=== PATIENT | male | born 2000 | race Caucasian/White ===

== ENCOUNTER 2021-04-04 12:48 | Emergency (ER) | payer BC, SELFPAY ==
[2021-04-04 12:51] VITALS: BP 146/64; PULSE 77; RESP 19; TEMP 36.6; O2SAT 100; BMI 27.6
--- NOTE | 2021-04-04 13:26 | ED_ITS ---
HPI - Wound/Laceration General Chief Complaint: Wound/Laceration Stated Complaint: cyst on tail bone Time Seen by Provider: 04/04/21 13:04 Source: patient Mode of arrival: ambulatory Limitations: no limitations History of Present Illness HPI narrative: 20-year-old male presents for 3 days of a painful lump on the top of his right buttock. Patient states he has boils in the past, but never had to have them drained. No fevers, or vomiting. Onset (ago): day(s) (3) Location: other (right buttock) Body four view annotation: 1. abscess Place: home Patient tetanus UTD: Yes Associated symptoms: pain Related Data Allergies Allergy/AdvReac Type Severity Reaction Status Date / Time No Known Allergies Allergy Verified 04/04/21 13:33 Review of Systems Review of Systems: Constitutional : No Weight loss, No Fever, No Chills, No Night Sweats,No Fatigue, No Malaise ENT/Mouth : No Hearing loss, No Ear Pain, No Nasal Congestion, NoSinus Pain, No Hoarseness, No sore throat, No Rhinorrhea, NoSwallowing Difficulty Eyes: No Eye Pain, No Swelling, No Redness, No Foreign Body, NoDischarge, No Vision Changes Cardiovascular : No Chest Pain, No SOB, No Dyspnea on Exertion, NoOrthopnea, No Edema, No Palpitations Respiratory : No Cough, No Sputum, No Wheezing, No Smoke Exposure, No Dyspnea Gastrointestinal : No Nausea, No Vomiting, No Diarrhea, NoConstipation, No abdominal Pain, No Hematochezia, No Melena Musculoskeletal : No joint pain, No Myalgias, No Joint Swelling Skin :abscess, red painful at top of buttocks Neuro : No Weakness, No Numbness, No Paresthesias, No Loss ofConsciousness, No Dizziness, No Headache PMFSH Social History Social History Advance Directives: No Advance Directives Information Provided: No Physical Exam Vital Signs: Vital Signs: Last Vital Signs Temp 98 F 04/04/21 12:51 Pulse 77 04/04/21 12:51 Resp 19 04/04/21 12:51 BP 146/64 H 04/04/21 12:51 Pulse Ox 100 04/04/21 12:51 Body Mass Index 27.6 Const: General: cooperative, no acute distress, well developed, alert and awake Nutritional Appearance: well nourished Orientation/consciousness: patient oriented x3 Limitations: no limitations Eyes: Conjunctivae: conjunctivae normal Pupils: Equal, round and reactive pupils present EOM: EOMs intact bilaterally Neck: Neck: Yes full ROM, Yes no lymphadenopathy and Yes supple Resp: Effort & Inspection: normal respiratory effort and able to speak in com plete sentences Auscultation: clear to auscultation bilaterally, no crackles, no rales, no rhonchi and no wheezes Cardio: Rate: regular rate Rhythm: regular rhythm Heart sounds: S1 normal heart sound present and S2 normal heart sound present GI: Inspection: Yes normal to inspection Palpation (GI): Soft to palpation, nontender, no guarding and not rigid Percussion: Yes normal to percussion Auscultation: normal bowel sounds Skin: Other: Abscess noted right gluteal cleft, is indurated with draining purulence Neuro: General: patient oriented x3, tone normal and moves all extremities Cranial nerves: Yes Equal, round and reactive pupils present Extrem: General: Yes normal to inspection and Yes full ROM Psych: Appearance: grossly normal Affect: normal affect Attitude: cooperative Thought process: Normal thought process present Course Course Course Narrative: 20-year-old with stable vitals was afebrile presents with 3 days of right gluteal cleft cyst. It has been painful. On exam, area is 2 cm in diameter just to the right of sacrum. There is induration, and when I press on the abscess, small amount of purulence is expressed. Did incision and drainage, about 5 mL purulence white giordano substance expressed. Packed wound, consultation to return to ER for recheck in 2 days. Patient verbalized agreement and understanding Procedures Abscess I/D Site: other (gluteal cleft) Side (if applicable): right Sedation/analgesia: none Local Anesthetic: lidocaine 1% Amount of anesthesia used (mL): 4 Technique: incised with blade Amount of fluid expressed (mL): 5 Sent for culture/gram staining?: No Irrigation: No Packing used?: iodoform Discharge Plan Discharge Clinical Impression: Pilonidal abscess of jeevan cleft Patient Disposition: Home, Self-Care Instructions: Pilonidal Cyst (ED) Additional Instructions: Please return to be seen in 2 days. You need to your abscess checked and the pa cking removed. Please leave the dressing in place until that time. If you have fevers, worsening pain, if you cannot eat or drink due to nausea and vomiting, please return sooner. Interventions: ED Discharge Assessment Last Done: 04/04/21 14:09 Discharge Date/Time: 04/04/21 14:10
[2021-04-04] MEDS: Lidocaine HCl 1 % 20 ML VIAL 10 ML INFILTRATI (13:50)
== END 2021-04-04 14:10 | disposition home or self-care (01) ==
PROVIDERS: Emergency Provider Emergency Medicine; PCP Internal Medicine
DX: L02.31 Cutaneous abscess of buttock (principal)
CPT/HCPCS: 10060; 99283; 99284

== ENCOUNTER 2021-04-06 09:25 | Emergency (ER) | payer BC, SELFPAY ==
[2021-04-06 10:14] VITALS: BP 144/65; PULSE 67; RESP 19; TEMP 36.5; O2SAT 98; BMI 27.6
--- NOTE | 2021-04-06 11:12 | ED_ITS ---
HPI - Skin/Abscess/Foreign Bdy General Chief complaint: Skin/Abscess/Foreign Body Stated complaint: WOUND CHECK Time Seen by Provider: 04/06/21 10:14 Source: patient Mode of arrival: ambulatory History of Present Illness HPI narrative: 20-year-old male presenting to the ED for abscess check/packing removal from pilonidal cyst to right buttock from 04/04. Patient reports area overall improved, reports slight continue drainage. Denies fever, chills, abdominal pain, nausea/vomiting MD complaint: abscess/boil Related Data Previous Rx's Medication Instructions Recorded cephalexin 500 mg capsule 500 mg PO QID 7 Days #28 cap 04/06/21 doxycycline hyclate 100 mg tablet 100 mg PO BID 7 Days #14 tab 04/06/21 Allergies Allergy/AdvReac Type Severity Reaction Status Date / Time No Known Allergies Allergy Verified 04/04/21 13:33 Review of Systems Review of Systems: Constitutional: No Fever, No Chills ENT/Mouth: No Ear Pain, No sore throat, No Rhinorrhea Cardiovascular: No Chest Pain, No SOB Respiratory: No Cough Gastrointestinal: No Nausea, No Vomiting, No Diarrhea, No Constipation, No Abdominal pain Genitourinary:, No Dysuria, No Flank Pain Musculoskeletal: No joint pain, No Myalgias, No Joint Swelling Skin: + Skin Lesions, No rash Neuro: No Weakness, No Numbness, No Paresthesias Yes all other systems are reviewed and are negative [facility] Past Medical History Attestation statement: The following information was validated with the patient. Medical History (Updated 04/06/21 @ 11:43 by CAITLIN Zamudio) No known health problems Social History Social History Advance Directives: Yes Advance Directives Information Provided: No Advance Directives on File: No Physical Exam Vital Signs: Vital Signs: Last Vital Signs Temp 97.7 F 04/06/21 10:14 Pulse 67 04/06/21 10:14 Resp 19 04/06/21 10:14 BP 144/65 H 04/06/21 10:14 Pulse Ox 98 04/06/21 10:14 Body Mass Index 27.6 Const: General: cooperative and healthy appearing Orientation/consciousness: patient oriented x3 Limitations: no limitations HENMT: Head: Yes normal to inspection Ears: hearing grossly normal bilaterally General nose exam: Normal external nose present Face and sinus: Yes normal facial exam Eyes: General: appearance normal, both eyes and all related structures EOM: EOMs intact bilaterally Neck: Neck: Yes normal visual inspection Resp: Effort & Inspection: normal respiratory effort Auscultation: clear to auscultation bilaterally Cardio: Rate: regular rate Heart sounds: S1 normal heart sound present and S2 normal heart sound present GI: Inspection: Yes normal to inspection Palpation (GI): Soft to palpation, nontender, no guarding and not rigid : Other: Packing removed from right pilonidal abscess. No expressible drainage. No surrounding cellulitis. Small area of induration noted to right buttock. No overlying cellulitis/fluctuance. Skin: Rashes: no rashes Wounds: no wounds Neuro: General: patient oriented x3 Gait exam (Neuro): Normal gait present Extrem: General: Yes normal to inspection MDM - Skin/Abscess/Foreign Bdy MDM Narrative Medical decision making narrative: 20-year-old male presenting to the ED for abscess check/packing removal from pilonidal cyst to right buttock from 04/04. On exam VSS, NAD/nontoxic appearing, packing removed, no evidence of active infection/cellulitis, small appreciable area of induration noted, will prescribe patient antibiotics, discussed worrisome signs and symptoms/strict return prec autions Medical Records Attestation: I reviewed the patient's medical records. Discharge Plan Discharge Clinical Impression: Abscess packing removal Patient Disposition: Home, Self-Care Instructions: Abscess Follow-up (ED) Additional Instructions: Doxycycline and Keflex are antibiotics, please take as prescribed Keep a close eye on area, if it is growing, there continues to be drainage, you have fever, increasing pain please return to the ED Please follow-up with your doctor Prescriptions: New cephalexin 500 mg capsule 500 mg PO QID 7 Days Qty: 28 RF: 0 doxycycline hyclate 100 mg tablet 100 mg PO BID 7 Days Qty: 14 RF: 0 Referrals: Sy Clark MD [Primary Care Provider] - 3 days
== END 2021-04-06 12:03 | disposition home or self-care (01) ==
PROVIDERS: Emergency Provider Emergency Medicine; PCP Internal Medicine
DX: Z48.00 Encounter for change or removal of nonsurgical wound dressing (principal); Z79.899 Other long term (current) drug therapy
CPT/HCPCS: 99283

== ENCOUNTER 2021-10-25 07:17 | Emergency (ER) | payer BC, SELFPAY ==
--- NOTE | ~2021-10-25 | XR_ITS ---
EXAMINATION: XR ABDOMEN KUB CLINICAL INDICATION: No bowel movement in 3 days, rule out obstruction. COMPARISON: None TECHNIQUE: AP view of the abdomen. FINDINGS: There is a nonobstructive bowel gas pattern. Moderate stool seen within the colon distally to the rectum. The osseous structures are unremarkable. XR/XR KUB IMPRESSION: Nonobstructive bowel gas pattern. Moderate colonic stool burden.
[2021-10-25 07:25] VITALS: BP 123/66; PULSE 87; RESP 16; TEMP 36.8; O2SAT 100; BMI 26.6
--- NOTE | 2021-10-25 09:29 | ED_ITS ---
HPI - General Adult General Chief complaint: Wound/Laceration Stated complaint: cyst Time Seen by Provider: 10/25/21 08:06 Source: patient Mode of arrival: ambulatory History of Present Illness HPI narrative: 21-year-old male with a past medical history of pilonidal cyst, recently evaluated by General surgery at [facility] on Thursday prescribed Keflex on 10/22/21, presenting to the ED complaining of persistent right buttock pain x1 we ek. Reports associated constipation, no BM x3 days, is passing flatus. Denies drainage from area, pointing, erythema. Reports discomfort with sitting, denies discomfort with BMs/urinating, bloody BMs, hematuria, nausea, vomiting, abdominal pain Onset (ago): week(s) Related Data Previous Rx's Medication Instructions Recorded cephalexin 500 mg capsule 500 mg PO QID 7 Days #28 cap 04/06/21 doxycycline hyclate 100 mg tablet 100 mg PO BID 7 Days #14 tab 04/06/21 doxycycline hyclate 100 mg tablet 100 mg PO BID 10 Days #20 tab 10/25/21 lidocaine 5 % topical ointment 1 appl TOPICAL BID PRN #35.44 g 10/25/21 polyethylene glycol 3350 17 17 g PO DAILY #119 g 10/25/21 gram/dose oral powder (Miralax) Allergies Allergy/AdvReac Type Severity Reaction Status Date / Time No Known Allergies Allergy Verified 04/04/21 13:33 Review of Systems Review of Systems: Constitutional: No Fever, No Chills, No Fatigue, No Malaise ENT/Mouth: No Ear Pain, No Nasal Congestion, No sore throat, No Rhinorrhea, No Swallowing Difficulty Eyes: No Eye Pain, No Swelling, No Redness Cardiovascular: No Chest Pain, No SOB, No Edema, No Palpitations Respiratory: No Cough, No Sputum, No Dyspnea Gastrointestinal: No Nausea, No Vomiting, No Diarrhea, + Constipation, No Abdominal pain Genitourinary: No Dysuria, No Urinary Frequency, No Hematuria, No Urgency, No Flank Pain, No Urinary Flow Changes, No Hesitancy Musculoskeletal: No joint pain, No Myalgias, No Joint Swelling Skin: + Skin Lesions, No rash Neuro: No Weakness, No Headache Yes all other systems are reviewed and are negative PMFSH Past Medical History Attestation statement: The following information was validated with the patient. Medical History No known health problems Social History Social History Advance Directives: No Advance Directives Information Provided: Yes Physical Exam ED Vital Signs: Vital Signs - 24 hr 10/25/21 07:25 Temperature 98.3 F Pulse Rate 87 Respiratory Rate 16 Blood Pressure 123/66 Pulse Oximetry 100 BMI result Body Mass Index 26.6 Const General: cooperative, healthy appearing and no acute distress Orientation/consciousness: patient oriented x3 Limitations: no limitations HENMT Head: Yes normal to inspection Ears: hearing grossly normal bilaterally General nose exam: Normal external nose present Face and sinus: Yes normal facial exam Eyes General: appearance normal, both eyes and all related structures EOM: EOMs intact bilaterally Neck Neck: Yes normal visual inspection and Yes no meningeal signs Resp Effort & Inspection: normal respiratory effort and no respiratory distress Cardio Rate: regular rate Heart sounds: S1 normal heart sound present and S2 normal heart sound present GI Other: + indurated pilonidal cyst extending to right buttock with swelling and tenderness to palpation. No fluctuance/erythema or pointing. No appreciable rectal involvement Inspection: Yes normal to inspection Palpation (GI): Soft to palpation, nontender, no guarding and not rigid Rectal Exam - Male: Yes normal sphincter tone, No External hemorrhoid(s) present, No Internal hemorrhoid(s) present and Yes tenderness General: Yes no CVA tenderness Back/Spine/Pelvis Back: no CVA tenderness Skin Rashes: no rashes Wounds: no wounds Neuro General: patient oriented x3 and no meningeal signs Gait exam (Neuro): Normal gait present Extrem General: Yes normal to inspection Course Course Course Narrative: -KUB showing nonobstructive bowel gas pattern with moderate colonic stool burden Results discussed with patient and mother including worrisome signs and symptoms and need to close follow-up with General surgery. They verbalized understanding -1000--as patient lying is getting ready for discharge reports he needs suture removal as well to left index finger, 5 sutures were placed last Thursday, 9 d ays ago, at [facility] s/p injury at work. Denies erythema, drainage, pain. > removed 1 suture however her wound began to open, left remaining 4 sutures intact and applied Steri-Strips. Instructed patient to leave sutures in place for another 3-5 days Procedures Procedure Narrative Procedure Narrative: Suture removal Removed 1 suture from left index finger Applied Steri-Strip Medical Decision Making MDM Narrative Medical decision making narrative: 21-year-old male with a past medical history of pilonidal cyst, recently evaluated by General surgery at [facility] on Thursday prescribed Keflex on 10/22/21, presenting to the ED complaining of persistent right buttock pain x1 week. Reports associated constipation, no BM x3 days, is passing flatus. On exam vital signs stable, NAD/nontoxic, physical exam as above consistent with indurated pilonidal cyst extending to right buttock, abdomen soft/nontender. No perirectal involvement appreciated. Abscess not drainable at this time. Patient currently on Keflex, will add doxycycline, discussed strict return precautions and worrisome signs and symptoms. Concern for constipation, unlikely SBO Will obtain KUB Medical Records Medical records reviewed: Yes I reviewed the patient's medical records. Lab Data Lab results reviewed: Yes I reviewed the patient's lab results. Discharge Plan Discharge Clinical Impression: Pilonidal cyst with abscess, Constipation Patient Disposition: Home, Self-Care Instructions: Constipation (ED), Pilonidal Cyst (ED), Abscess Follow-up (ED) Additional Instructions: Continue taking previously prescribed Keflex, in addition start taking doxycycline which is another antibiotic You should also take Miralax to help with your stool Please follow-up for the remainder of your sutures to be removed in 3-5 days your X-ray shows constipation if your symptoms worsen, area grows, becomes red, pointing, has drainage, you develop fever please return to the emergency department Please follow-up with her general surgeon Prescriptions: New doxycycline hyclate 100 mg tablet 100 mg PO BID 10 Days Qty: 20 0RF polyethylene glycol 3350 [Miralax] 17 gram/dose powder 17 g PO DAILY Qty: 119 0RF lidocaine 5 % ointment 1 appl topical BID PRN (Reason: pain) Qty: 35.44 0RF No Action cephalexin 500 mg capsule 500 mg PO QID 7 Days Qty: 28 0RF doxycycline hyclate 100 mg tablet 100 mg PO BID 7 Days Qty: 14 0RF Referrals: Paolo Ortiz MD [Physician] - 3 days Stand Alone Forms: Work/School Release
== END 2021-10-25 10:02 | disposition home or self-care (01) ==
PROVIDERS: Emergency Provider Emergency Medicine; PCP Internal Medicine
DX: L05.01 Pilonidal cyst with abscess (principal); K59.00 Constipation, unspecified; R10.9 Unspecified abdominal pain; Z79.899 Other long term (current) drug therapy; Z48.02 Encounter for removal of sutures
CPT/HCPCS: 10120; 74018; 99283

== ENCOUNTER 2022-03-13 11:47 | Emergency (ER) | payer BC, SELFPAY ==
[2022-03-13 11:49] VITALS: BP 123/71; PULSE 56; RESP 18; TEMP 36.8; O2SAT 100; BMI 26.6
[2022-03-13 12:12] LABS: Strep A Nucleic Acid Negative (Negative)
[2022-03-13 12:17] LABS: COVID-19 Test Negative (Negative)
--- NOTE | 2022-03-13 13:26 | ED_ITS ---
HPI - General Adult General Chief complaint: General Medical Stated complaint: Sore throat Time Seen by Provider: 03/13/22 13:26 Source: patient Mode of arrival: ambulatory Limitations: no limitations History of Present Illness HPI narrative: 21-year-old male with no significant medical history presents to the ER for evaluation of sore throat for the last 1 month. He states he has been tested for strep and COVID and both have been negative. He reports the pain is constant, worse when he tries to eat. It is also worse 1st thing in the morning and before he goes to bed. He denies any other symptoms including fever, chills, cough, runny nose, watery eyes. He has been able to eat and drink normally despite the pain in his throat. MD complaint: Sore throat Onset (ago): month(s) (1) Location: mouth Radiation: non-radiation Severity: moderate Severity scale (1-10): 6 Quality: aching Pain Consistency: constant Relieving factors: none Exacerbating factors: eating Associated symptoms: denies other symptoms Treatments prior to arrival: none Related Data Previous Rx's Medication Instructions Recorded cephalexin 500 mg capsule 500 mg PO QID 7 days #28 caps 04/06/21 doxycycline hyclate 100 mg tablet 100 mg PO BID 7 days #14 tabs 04/06/21 doxycycline hyclate 100 mg tablet 100 mg PO BID 10 days #20 tabs 10/25/21 lidocaine 5 % topical ointment 1 appl topical BID PRN pain #35.44 10/25/21 grams polyethylene glycol 3350 17 17 g PO DAILY #119 grams 10/25/21 gram/dose oral powder (Miralax) amoxicillin 875 mg-potassium 1 tab PO BID #20 tabs 03/13/22 clavulanate 125 mg tablet cetirizine 10 mg tablet (All Day 10 mg PO DAILY #30 tabs 03/13/22 Allergy (cetirizine)) fluticasone propionate 50 1 spray intranasal BID #16 grams 03/13/22 mcg/actuation nasal spray,suspension (Flonase Allergy Relief) Allergies Allergy/AdvReac Type Severity Reaction Status Date / Time No Known Allergies Allergy Verified 04/04/21 13:33 Review of Systems Review of Systems: Constitutional: No Fever, No Chills ENT/Mouth: + sore throat, No Rhinorrhea, No Swallowing Difficulty Eyes: No Eye Pain, No Swelling, No Redness Cardiovascular: No Chest Pain, No SOB, No Orthopnea, No Edema Respiratory: No Cough, No Sputum, No Wheezing, No dyspnea Gastrointestinal: No Nausea, No Vomiting, No Diarrhea, No abdominal Pain Genitourinary: No Dysuria, No Urinary Frequency, No Hematuria, No penile lesions Musculoskeletal: No joint pain, No Myalgias Skin: No Skin Lesions, No rash Neuro: No Weakness, No Numbness, No Dizziness, No Headache Heme/Lymph: No Lymphadenopathy PMFSH Past Medical History Medical History No known health problems Social History Social History Advance Directives: No Advance Directives Information Provided: No Physical Exam ED Vital Signs: Vital Signs - 24 hr 03/13/22 11:49 Temperature 98.2 F Pulse Rate 56 Respiratory Rate 18 Blood Pressure 123/71 Pulse Oximetry 100 Oxygen Delivery Method Room Air BMI result Body Mass Index 26.6 Appearance: Alert. Oriented X3. No acute distress. HEENT: normal external inspection. pharynx with moist mucus membranes, tonsils are bilaterally enlarged, erythematous, tiny exudates noted posteriorly and bilaterally. Uvula is midline. Normal voice, handling secretions normally. CVS: Normal heart rate and rhythm. Pulses normal. Respiratory: No respiratory distress. Skin: Skin warm and dry. Normal skin color. Normal skin turgor. No rashes. Extremities: normal inspection x4. Neuro: Oriented X 3. No motor deficit. No sensory deficit. Course Course Course Narrative: 21-year-old male presents to the ER for evaluation of a sore throat for the last 1 month. He has been negative for COVID and strep. He is negative for COVID and strep today. On examination his tonsils are enlarged, erythematous with tiny exudates posteriorly. This could be indicative of strep throat. Upon further questioning patient reports he had sexual contact with a person recently that had herpes. He has no penile or lesions on his lips or inside of his mouth. The tonsils do not appear to be herpetic. Will test for gonorrhea however. Will empirically start him on Augmentin as well as Zyrtec and Flonase for possible allergies and other bacterial infection. If his gonorrhea swab is positive we will call and start him on treatment. Stable for discharge home. Medical Decision Making Lab Data Labs: Lab Results 03/13/22 03/13/22 Range/Units 11:58 11:58 COVID-19 (THONY) Negative (Negative) COVID-19 Clin Com See Note S. pyogenes GrpA GABY Negative (Negative) Discharge Plan Discharge Clinical Impression: Sore throat Patient Disposition: Home, Self-Care Instructions: Pharyngitis (ED) Additional Instructions: You are negative for strep throat and COVID-19. Take the prescribed antibiotic as directed, complete the entire course. If your Gonorrhea throat swab is positive we will call you. Recommend trial of the prescribed medications, take as directed. Recommend following up with ear nose and throat doctor, name and number below. Use warm salt water gargles several times per day. Recommend [id number] Chloraseptic spray and Cepacol lozenges as needed for your sore throat. You can also take Motrin and Tylenol for pain. If you develop new or worsening symptoms call 911 or come back to the ER for further evaluation. Prescriptions: New cetirizine [All Day Allergy (cetirizine)] 10 mg tablet 10 mg PO DAILY Qty: 30 0RF fluticasone propionate [Flonase Allergy Relief] 50 mcg/actuation s pray,suspension 1 spray intranasal BID Qty: 16 0RF Rx Instructions: administer into each nostril amoxicillin-pot clavulanate 875-125 mg tablet 1 tab PO BID Qty: 20 0RF No Action cephalexin 500 mg capsule 500 mg PO QID 7 Days Qty: 28 0RF doxycycline hyclate 100 mg tablet 100 mg PO BID 7 Days Qty: 14 0RF doxycycline hyclate 100 mg tablet 100 mg PO BID 10 Days Qty: 20 0RF polyethylene glycol 3350 [Miralax] 17 gram/dose powder 17 g PO DAILY Qty: 119 0RF lidocaine 5 % ointment 1 appl topical BID PRN (Reason: pain) Qty: 35.44 0RF Referrals: Jarret Gomez [Physician] - Stand Alone Forms: Work/School Release Interventions: ED Discharge Assessment Last Done: 03/13/22 13:52 Discharge Date/Time: 03/13/22 13:54
[2022-03-15 06:47] LABS: N. gonorrhoeae RNA TMA, Throat NOT DETECTED (NOT DETECTED)
== END 2022-03-13 13:54 | disposition home or self-care (01) ==
PROVIDERS: Physician Assistant; Emergency Provider Emergency Medicine Emergency Medical Services; PCP Internal Medicine
DX: J02.9 Acute pharyngitis, unspecified (principal); Z20.822 Contact with and (suspected) exposure to COVID-19
CPT/HCPCS: 36415; 87591; 87635; 87651; 99282; 99283

== ENCOUNTER 2022-11-23 09:30 | Emergency (ER) | payer BC, SELFPAY ==
[2022-11-23 09:33] VITALS: BP 127/52; PULSE 67; RESP 14; TEMP 36.6; O2SAT 98; BMI 27.4
--- NOTE | 2022-11-23 09:37 | ED_ITS ---
HPI - General Adult General Chief complaint: General Medical Stated complaint: sore throat Time Seen by Provider: 11/23/22 09:37 Source: patient Mode of arrival: ambulatory Limitations: no limitations History of Present Illness HPI narrative: 22-year-old male presents with fatigue, malaise, subjective fevers and chills and sore throat for the past week not improving.? Reports sore throat is worse with swallowing.? Significant other with similar symptoms..? Denies chest pain, shortness of breath, nausea, vomiting, abdominal pain, headache, vision changes, dizziness and weakness. Related Data Previous Rx's Medication Instructions Recorded cephalexin 500 mg capsule 500 mg PO QID 7 days #28 caps 04/06/21 doxycycline hyclate 100 mg tablet 100 mg PO BID 7 days #14 tabs 04/06/21 doxycycline hyclate 100 mg tablet 100 mg PO BID 10 days #20 tabs 10/25/21 lidocaine 5 % topical ointment 1 appl topical BID PRN pain #35.44 10/25/21 grams polyethylene glycol 3350 17 17 g PO DAILY #119 grams 10/25/21 gram/dose oral powder (Miralax) amoxicillin 875 mg-potassium 1 tab PO BID #20 tabs 03/13/22 clavulanate 125 mg tablet cetirizine 10 mg tablet (All Day 10 mg PO DAILY #30 tabs 03/13/22 Allergy (cetirizine)) fluticasone propionate 50 1 spray intranasal BID #16 grams 03/13/22 mcg/actuation nasal spray,suspension (Flonase Allergy Relief) amoxicillin 875 mg-potassium 1 tab PO BID 10 days #20 tabs 11/23/22 clavulanate 125 mg tablet Allergies Allergy/AdvReac Type Severity Reaction Status Date / Time No Known Allergies Allergy Verified 11/23/22 09:32 Review of Systems Review of Systems: Constitutional : No Weight loss, + Fever, + Chills, + Fatigue, + Malaise ENT/Mouth : + sore throat, No Rhinorrhea Eyes: No Eye Pain, No Swelling, No Redness Cardiovascular : No Chest Pain, No SOB, No Dyspnea on Exertion, No Orthopnea, No Edema, No Palpitations Respiratory : No Cough, No Sputum, No Wheezing Gastrointestinal : No Nausea, No Vomiting, No Diarrhea, No Constipation, No abdominal Pain, No Hematochezia, No Melena Genitourinary : No Dysuria, No Urinary Frequency, No Hematuria, Musculoskeletal : No joint pain, No Myalgias, No Joint Swelling Skin : No Skin Lesions, No rash Neuro : No Weakness, No Numbness, No Dizziness, No Headache Psych : No Anxiety/Panic, No Depression All other systems reviewed and are negative Yes all other systems are reviewed and are negative [facility] Past Medical History Attestation statement: The following information was validated with the patient. Source: old records reviewed and nursing notes reviewed Medical History No known health problems Physical Exam ED Vital Signs: Vital Signs - 24 hr 11/23/22 09:33 Temperature 98 F Pulse Rate 67 Respiratory Rate 14 Blood Pressure 127/52 L Pulse Oximetry 98 Oxygen Delivery Method Room Air BMI result Body Mass Index 27.4 vss Appearance: Alert.? Oriented X3.? No acute distress.? Head: Normocephalic, atraumatic, no step-offs or deformities Eyes: Pupils equal, round and reactive to light.? ENT: Pharynx w/ erythematous tonsils bilaterally, no exudates or edema.? Uvula midline.? Patient is speaking in full sentences controlling secretions well no palpable lymphadenopathy. Neck: Normal inspection.? Neck supple.? CVS: Normal heart rate and rhythm.? Pulses normal.? Respiratory: No respiratory distress.? Breath sounds normal.? Abdomen: Soft and nontender.? Skin: Skin warm and dry.? Normal skin color.? Normal skin turgor.? Extremities: No lower extremity edema.? No calf ttp. 5/5 strength to bilateral upper and lower extremities Neuro: Oriented X 3.? No motor deficit.? No sensory deficit. CN 2-12 intact Course Reevaluation(s) Reevaluation #1: Tells me that co-worker tested positive for strep throat. Will empirically treat. Educated patient on diagnosis and treatment plan, answered all question, patient verbalizes understanding. At this time patient will be discharged home, advised to return with new or worsening symptoms. Educated on worrisome signs and symptoms and when to return. At this time I feel comfortable discharge home. Time: 09:57 Medical Decision Making Medical Decision Making [facility] Narrative: [id number] 22-year-old male presents with sore throat, fatigue, malaise for the past week not improving. ??Physical exam significant for erythematous tonsils bilaterally, no exudates or edema.? Uvula midline.? Patient is speaking in full sentences controlling secretions well, no palpable lymphadenopathy. ?This is likely viral illness versus strep pharyngitis.? Unlikely epiglottitis, peritonsillar abscess, ? retropharyngeal abscess,no signs of airway compromise. ?Plan viral testing, will treat with antibiotics due ? For pharyngitis Differential Diagnosis Differential Diagnoses: The differential diagnosis associated with the presentation includes ?This is likely viral illness versus strep pharyngitis.? Unlikely epiglottitis, peritonsillar abscess, ? retropharyngeal abscess,no signs of airway compromise. Admission/Observation Consideration of admission/observation: Escalation of care including admission/observation considered Core Measures AMI core measures followed: Yes Measure exclusions: not indicated Discharge Plan Discharge Clinical Impression: Pharyngitis Patient Disposition: Home, Self-Care Instructions: Pharyngitis (ED) Additional Instructions: Take your medications as prescribed. If you were prescribed antibiotics today, it is important that you take your medication to their entirety, do not skip any doses, do not finish them early. Follow-up with your primary care provider this week. Return to the emergency department with new or worsening symptoms. Such as fevers, chills, chest pain, shortness of breath, nausea, vomiting, dizziness, headache, vision changes, lethargy In case of emergency call 911 Prescriptions: New amoxicillin-pot clavulanate 875-125 mg tablet 1 tab PO BID 10 Days Qty: 20 0RF No Action cephalexin 500 mg capsule 500 mg PO QID 7 Days Qty: 28 0RF doxycycline hyclate 100 mg tablet 100 mg PO BID 7 Days Qty: 14 0RF doxycycline hyclate 100 mg tablet 100 mg PO BID 10 Days Qty: 20 0RF polyethylene glycol 3350 [Miralax] 17 gram/dose powder 17 g PO DAILY Qty: 119 0RF lidocaine 5 % ointment 1 appl topical BID PRN (Reason: pain) Qty: 35.44 0RF cetirizine [All Day Allergy (cetirizine)] 10 mg tablet 10 mg PO DAILY Qty: 30 0RF fluticasone propionate [Flonase Allergy Relief] 50 mcg/actuation spray,suspension 1 spray intranasal BID Qty: 16 0RF Rx Instructions: administer into each nostril amoxicillin-pot clavulanate 875-125 mg tablet 1 tab PO BID Qty: 20 0RF Referrals: Sy Clark MD [Primary Care Provider] - 2 days Stand Alone Forms: Work/School Release
[2022-11-23 10:09] LABS: IDNOW Serial# 08D9AD1C; Strep A Nucleic Acid Negative (Negative)
== END 2022-11-23 10:30 | disposition home or self-care (01) ==
PROVIDERS: Emergency Provider Emergency Medicine; PCP Internal Medicine
DX: J02.9 Acute pharyngitis, unspecified (principal); Z20.822 Contact with and (suspected) exposure to COVID-19; Z20.828 Contact with and (suspected) exposure to other viral communicable diseases
CPT/HCPCS: 87651; 99283

== ENCOUNTER 2023-04-25 10:55 | Emergency (ER) | payer BC, SELFPAY ==
[2023-04-25 10:58] VITALS: BP 138/93; PULSE 91; RESP 19; TEMP 36.6; O2SAT 99; BMI 27.3
--- NOTE | 2023-04-25 11:52 | ED.WOUNDLAC ---
HPI - Wound/Laceration General Chief Complaint: Wound/Laceration Stated Complaint: cut on armpit, infected? Time Seen by Provider: 04/25/23 11:32 Source: patient Mode of arrival: ambulatory Limitations: no limitations History of Present Illness HPI narrative: this is a 22-year-old male who has previously healthy who presents to the ER with concern for abrasion to the right axilla which she has noticed for several days. Patient reports he gets similar abrasions underneath his chin in his groin area from time to time. Usually resolve without any intervention. Related Data Previous Rx's Medication Instructions Recorded cephalexin 500 mg capsule 500 mg PO QID 7 days #28 caps 04/06/21 doxycycline hyclate 100 mg tablet 100 mg PO BID 7 days #14 tabs 04/06/21 doxycycline hyclate 100 mg tablet 100 mg PO BID 10 days #20 tabs 10/25/21 lidocaine 5 % topical ointment 1 appl topical BID PRN pain #35.44 10/25/21 grams polyethylene glycol 3350 17 17 g PO DAILY #119 grams 10/25/21 gram/dose oral powder (Miralax) amoxicillin 875 mg-potassium 1 tab PO BID #20 tabs 03/13/22 clavulanate 125 mg tablet cetirizine 10 mg tablet (All Day 10 mg PO DAILY #30 tabs 03/13/22 Allergy (cetirizine)) fluticasone propionate 50 1 spray intranasal BID #16 grams 03/13/22 mcg/actuation nasal spray,suspension (Flonase Allergy Relief) amoxicillin 875 mg-potassium 1 tab PO BID 10 days #20 tabs 11/23/22 clavulanate 125 mg tablet Allergies Allergy/AdvReac Type Severity Reaction Status Date / Time No Known Allergies Allergy Verified 04/25/23 10:57 Review of Systems Review of Systems: Yes all other systems are reviewed and are negative Constitutional: Constitutional: Reports no additional constitutional complaints, Denies body ache(s), Denies chills, Denies fever(s), Denies headache(s) and Denies weakness Eyes: Eyes: Reports no additional eye complaints and Denies change in vision ENT: Reports system reviewed and no additional complaints, except as documented, Denies dizziness, Denies headache(s), Denies nasal congestion, Denies nasal discharge and Denies neck pain Cardiovascular: Cardiovascular: Reports no additional cardiovascular complaints, Denies chest pain, Denies leg edema and Denies dyspnea Respiratory: Respiratory: Reports no additional respiratory complaints, Denies cough and Denies dyspnea Gastrointestinal: Gastrointestinal: Reports no additional gastrointestinal complaints, Denies abdominal pain, Denies diarrhea, Denies nausea and Denies vomiting Genitourinary: Genitourinary: Denies urinary incontinence Musculoskeletal: Musculoskeletal: Reports no additional musculoskeletal complaints, Denies back pain, Denies arthralgias, Denies joint swelling, Denies neck pain, Denies numbness and Denies tingling Integumentary/Breasts: Skin/Breast: Reports system reviewed and no additional complaints, except as docu, Denies swelling, Denies erythema, Denies rash and Reports wounds Neurologic: Reports system reviewed and no additional complaints, except as documented, Denies Abnormal speech present, Denies dizziness, Denies headache(s), Denies numbness, Denies tingling and Denies weakness PMFSH Past Medical History Attestation statement: The following information was validated with the patient. Source: old records reviewed and nursing notes reviewed Medical History No known health problems Social History Social History Advance Directives: No Advance Directives Information Provided: Yes Physical Exam Vital Signs: Vital Signs: Last Vital Signs Temp 98 F 04/25/23 10:58 Pulse 91 04/25/23 10:58 Resp 19 04/25/23 10:58 BP 138/93 H 04/25/23 10:58 Pulse Ox 99 04/25/23 10:58 O2 Del Method Room Air 04/25/23 10:58 BMI result Body Mass Index 27.3 Const: General: cooperative, healthy appearing, comfortable and no acute distress Orientation/consciousness: patient oriented x3 Limitations: no limitations HEENT: Head: Yes normal to inspection Ears: hearing grossly normal bilaterally General nose exam: Normal external nose present Face and sinus: Yes normal facial exam Mouth: Normal oral and palatal mucosa present Throat: Yes posterior oropharynx normal Eyes: General: appearance normal, both eyes and all related structures Pupils: Equal, round and reactive pupils present Neck: Neck: Yes normal visual inspection Chest: Chest palpation & inspection: normal inspection of the chest Chest/axillae images: 1. To the right axilla there is an approximately 3 cm healing lesion noted with no surrounding induration, fluctuance, pointing or draining. There is no tenderness on palpation. There is no local lymphadenopathy. Resp: Effort & Inspection: normal respiratory effort Auscultation: clear to auscultation bilaterally Cardio: Rate: regular rate Rhythm: regular rhythm Peripheral pulses: Peripheral pulses 2+ throughout GI: Inspection: Yes normal to inspection Palpation (GI): Soft to palpation and nontender Auscultation: normal bowel sounds Back/Spine/Pelvis: Thoracic/Lumbar Spine: thoracic and lumbar spine normal to inspection Skin: General skin exam: no rashes or lesions noted Neuro: General: patient oriented x3, no focal motor deficits and normal sensation to monofilament Cranial nerves: Yes Equal, round and reactive pupils present Cognition (Neuro): normal cognition Speech: No Abnormal speech present Gait exam (Neuro): Normal gait present Motor exam (neuro): 5/5 motor strength present throughout Extrem: General: Yes normal to inspection Medical Decision Making Medical Decision Making MDM Narrative: this is a 22-year-old male who has previously healthy who presents to the ER with concern for abrasion to the right axilla which she has noticed for several days. Patient reports he gets similar abrasions underneath his chin in his groin area from time to time. Usually resolve without any intervention. To the right axilla there is an approximately 3 cm healing lesion noted with no surrounding induration, fluctuance, pointing or draining. There is no tenderness on palpation. There is no local lymphadenopathy. Patient reports history of these lesions in areas of hair growth. Patient shows me several pictures on his phone that is consistent with folliculitis. I recommended that he apply topical antibiotic cream, use warm compresses as tolerated. We discussed that there is no need for incision and drainage. Differential Diagnosis Differential Diagnoses: The differential diagnosis associated with the presentation includes Folliculitis low concern for cellulitis or abscess Admission/Observation Consideration of admission/observation: Escalation of care including admission/observation considered Prescription Management I considered prescription management with: Antibiotic healing lesion. Does not require oral antibiotics Discharge Plan Discharge Clinical Impression: Folliculitis Patient Disposition: Home, Self-Care Instructions: Folliculitis (ED) Additional Instructions: Apply a topical antibiotic ointment You may also use warm compresses 3-4 times daily Prescriptions: No Action cephalexin 500 mg capsule 500 mg PO QID 7 Days Qty: 28 0RF doxycycline hyclate 100 mg tablet 100 mg PO BID 7 Days Qty: 14 0RF doxycycline hyclate 100 mg tablet 100 mg PO BID 10 Days Qty: 20 0RF polyethylene glycol 3350 [Miralax] 17 gram/dose powder 17 g PO DAILY Qty: 119 0RF lidocaine 5 % ointment 1 appl topical BID PRN (Reason: pain) Qty: 35.44 0RF cetirizine [All Day Allergy (cetirizine)] 10 mg tablet 10 mg PO DAILY Qty: 30 0RF fluticasone propionate [Flonase Allergy Relief] 50 mcg/actuation spray,suspension 1 spray intranasal BID Qty: 16 0RF Rx Instructions: administer into each nostril amoxicillin-pot clavulanate 875-125 mg tablet 1 tab PO BID Qty: 20 0RF amoxicillin-pot clavulanate 875-125 mg tablet 1 tab PO BID 10 Days Qty: 20 0RF Referrals: Sy Clark MD [Primary Care Provider] - 1 week (as needed) Interventions: ED Discharge Assessment Last Done: 04/25/23 12:06 Discharge Date/Time: 04/25/23 12:07
== END 2023-04-25 12:07 | disposition home or self-care (01) ==
PROVIDERS: Emergency Provider Emergency Medicine Emergency Medical Services; PCP Internal Medicine
DX: L73.9 Follicular disorder, unspecified (principal); Z79.899 Other long term (current) drug therapy
CPT/HCPCS: 99282